=== PATIENT | female | born 1955 | race Caucasian/White ===

== ENCOUNTER 2017-02-07 15:40 | Emergency (ER) | payer OTHER ==
[~2017-02-07] VITALS: Ht 162.6 cm; Wt 82.8 kg
[~2017-02-07 15:40] MED LIST: Aspirin E.C. PO; Caltrate 600/400 PO; Glucophage PO; LIPITOR10 MG PO; Theragran PO; Vicodin,Norco 5/325 PO; Zestril,Prinivil PO; [UNRECOGNIZED DRUG - OTHER] PO
[2017-02-07 16:34] LABS: HEMATOCRIT 39.2 % (36.0-46.0); MCH 30.9 PG (29.0-34.0); MCHC 33.7 G/DL (30.0-36.0); MCV 91.8 FL (83-99); MEAN PLAT.VOLUME 9.7 uM^3 (9.5-12.4); PLATELET COUNT 265 K/uL (156-360); RBC DIS.WIDTH-CV 11.4 % (11.8-14.6); RBC DIS.WIDTH-SD 38.4 % (39-53); RED BLOOD COUNT 4.27 M/uL (3.80-5.20); WHITE BLOOD COUNT 9.5 K/uL (4.1-10.2)
[2017-02-07 16:45] LABS: CHLORIDE 104 mEq/L (99-109); SODIUM 139 mEq/L (136-147)
[2017-02-07 16:47] LABS: GLUCOSE 274 mg/dL (70-99)
[2017-02-07 16:48] LABS: ANION GAP 11 MEQ/L (2-14)
[2017-02-07 16:51] LABS: GFR ESTIMATE (CALCULATED) 33 mL/min/
[2017-02-07 16:52] LABS: UREA NITROGEN (BUN) 35 mg/dL (9-23)
[2017-02-07 17:01] LABS: ADD MIUA? YES; BILIRUBIN NEGATIVE; BLOOD LARGE; COLOR AMBER ((YELLOW)); GLUCOSE (STRIP) 50; KETONES NEGATIVE; LEUKOCYTES NEGATIVE; NITRITE NEGATIVE; PROTEIN (STRIP) 100; SPECIFIC GRAVITY 1.026 (1.000-1.030); UROBILINOGEN 0.2 MG/DL (0.2-1.0)
[2017-02-07 17:15] LABS: RED BLOOD CELLS TNTC /HPF (0-5)
[2017-02-07 17:16] LABS: BACTERIA 1+ /HPF; CASTS NONE SEEN /LPF; CRYSTALS NONE SEEN; EPITHELIAL CELLS RARE /HPF; MUCUS NONE SEEN /LPF; UCUL ADDED? NO
[2017-02-07] MEDS ORDERED: TYLENOL WITH C1 EACH PO (19:31)
[2017-02-07] MEDS ORDERED: FLOMAX0.4 MG PO (19:31)
[2017-02-07] MEDS ORDERED: CIPRO500 MG PO (19:31)
[2017-02-07] MEDS ORDERED: ZOFRAN ODT4 MG PO (19:31)
[2017-02-07 20:09] VITALS: BP 144/80
== END 2017-02-07 20:12 | disposition home or self-care (01) ==
LOC: EME 15:40
DX: N13.2 Hydronephrosis with renal and ureteral calculous obstruction (principal); K22.9 Disease of esophagus, unspecified; R11.2 Nausea with vomiting, unspecified; Z87.442 Personal history of urinary calculi; I10 Essential (primary) hypertension; E11.9 Type 2 diabetes mellitus without complications; Z79.84 Long term (current) use of oral hypoglycemic drugs; Z79.82 Long term (current) use of aspirin
CPT/HCPCS: 74176; 80048; 81003; 85027; 99281; 99284; J1885; J2270; J2405; J2765; J7030

== ENCOUNTER 2017-02-13 20:57 | Emergency (ER) | payer OTHER ==
[~2017-02-13] VITALS: Ht 162.6 cm; Wt 81.7 kg
[~2017-02-13 20:57] MED LIST changes: +CIPRO500 MG PO; +FLOMAX0.4 MG PO; +TYLENOL WITH C1 EACH PO; +ZOFRAN ODT4 MG PO
[2017-02-13 23:17] LABS: HEMATOCRIT 37.1 % (36.0-46.0); MCH 31.4 PG (29.0-34.0); MCHC 34.5 G/DL (30.0-36.0); MCV 90.9 FL (83-99); MEAN PLAT.VOLUME 9.7 uM^3 (9.5-12.4); PLATELET COUNT 250 K/uL (156-360); RBC DIS.WIDTH-CV 11.4 % (11.8-14.6); RBC DIS.WIDTH-SD 37.8 % (39-53); RED BLOOD COUNT 4.08 M/uL (3.80-5.20); WHITE BLOOD COUNT 10.5 K/uL (4.1-10.2)
[2017-02-13 23:27] LABS: CHLORIDE 105 mEq/L (99-109); POTASSIUM 4.1 mEq/L (3.7-5.4); SODIUM 140 mEq/L (136-147)
[2017-02-13 23:28] LABS: ADD MIUA? YES; BILIRUBIN NEGATIVE; BLOOD LARGE; COLOR YELLOW ((YELLOW)); GLUCOSE (STRIP) NEGATIVE; KETONES 5; LEUKOCYTES TRACE; NITRITE NEGATIVE; PROTEIN (STRIP) NEGATIVE; SPECIFIC GRAVITY 1.016 (1.000-1.030); UROBILINOGEN 0.2 MG/DL (0.2-1.0)
[2017-02-13 23:29] LABS: GLUCOSE 185 mg/dL (70-99)
[2017-02-13 23:30] LABS: ANION GAP 12 MEQ/L (2-14)
[2017-02-13 23:31] LABS: TOTAL BILIRUBIN 0.3 mg/dL (0.0-1.0)
[2017-02-13 23:33] LABS: ALKALINE PHOSPHATASE 114 IU/L (3-129); GFR ESTIMATE (CALCULATED) > 59 mL/min/
[2017-02-13 23:34] LABS: UREA NITROGEN (BUN) 16 mg/dL (9-23)
[2017-02-13 23:35] LABS: DIRECT BILIRUBIN 0.2 mg/dL (0.0-0.3)
[2017-02-13 23:36] LABS: BACTERIA NONE SEEN /HPF; EPITHELIAL CELLS RARE /HPF; MUCUS 1+ /LPF; RED BLOOD CELLS TNTC /HPF (0-5); UCUL ADDED? NO
[2017-02-13 23:36] LABS: LIPASE 7 U/L (1.0-51.0)
[2017-02-13] MEDS ORDERED: CIPRO500 MG PO (23:48)
[2017-02-14 00:11] VITALS: BP 193/96
== END 2017-02-14 00:14 | disposition home or self-care (01) ==
LOC: EME 20:57
PROVIDERS: Emergency Medicine
DX: N39.0 Urinary tract infection, site not specified (principal); I10 Essential (primary) hypertension; E11.9 Type 2 diabetes mellitus without complications; K59.00 Constipation, unspecified; F32.9 Major depressive disorder, single episode, unspecified; G43.909 Migraine, unspecified, not intractable, without status migrainosus; Z79.82 Long term (current) use of aspirin
CPT/HCPCS: 80048; 80076; 81003; 83690; 85027; 87086; 99281; 99284

== ENCOUNTER → 2017-03-05 | Outpatient (CLI) | payer OTHER ==
[~2017-03-05] VITALS: Ht 162.6 cm; Wt 79.8 kg
[~2017-03-05] MED LIST changes: +CALTRATE 600 +1 EAC1 PO; +CELEXA10 MG PO
[2017-03-05 12:07] LABS: POINT-OF-CARE METER ID UU14107333
== END | disposition home or self-care (01) ==
LOC: AMB 10:59
PROVIDERS: Internal Medicine Gastroenterology
DX: K22.9 Disease of esophagus, unspecified (principal); Z87.442 Personal history of urinary calculi; Z88.1 Allergy status to other antibiotic agents; Z88.2 Allergy status to sulfonamides
CPT/HCPCS: 82948; 88173; 88305; 88342 TC; 93005; C1726; J0330; J1100; J2405; J3010